=== PATIENT | female | born 1970 | race Caucasian/White ===

== ENCOUNTER → 2018-01-12 | Outpatient (CLI) | payer BC ==
[~2018-01-12] MED LIST: ACHD5005 PO; LVT.1T PO; METH20TA PO; PROP20TA5 PO; [UNRECOGNIZED DRUG - CODE] PO
--- NOTE | 2018-01-12 12:52 | Diagnostic Imaging Report ---
Indication: Screening No prior examinations are available for comparison as this is a baseline exam. 3-D tomosynthesis was also performed and reviewed. Findings: There is heterogeneously dense fibroglandular tissue. There is no dominant mass, spiculated lesion or suspicious calcifications identified. Skin nipples and axilla are unremarkable. Impression: Category 1, negative. ACR BI-RADS Category 1: Negative. Result letter will be mailed to the patient. Note: At least 10% of breast cancer is not imaged by mammography. Dictated by: Dictated on workstation # [id number]
== END ==
LOC: RAD 08:57
DX: Z12.31 Encounter for screening mammogram for malignant neoplasm of breast (principal)
CPT/HCPCS: 77067